=== PATIENT | male | born 1960 | race Caucasian/White ===

== ENCOUNTER → 2021-08-07 | Outpatient (CLI) | payer OTHER ==
[~2021-08-07] MED LIST: CELE200C PO; DEXAMETHASONE PRES.FREE 10 MG/ML VIAL. ONE; IOHEXOL 180 MG/ML 10 ML VIAL. ONE
--- NOTE | 2021-08-07 13:21 | PDOC1 ---
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 Patient reports the pain is constant and stabbing in the back changes during the day worse with activity standing walking better with sitting or laying down generally is not awakening from sleep at night does not have any bowel or bladder control issues from the pain patient does not use any assistive devices to ambulate but reports that it does affect his ability to walk when the pain is at its worst. Patient did have MRI scan dated 2013 also more recent plain films lumbar spine showing degenerative changes throughout the lumbar distribution with narrowing at L3-4 L4-5 and L5-S1 levels. Patient reports no loss of motor function but significant fatigability once again of the lower extremities. Patient rates his disability rating 0-10 10 being the worst is a 9 with family responsibilities recreation social activity 10 with occupation and 6 with life support activities. Patient is had chiropractic treatment which is ongoing but nothing in the past few months also has had epidural injections many years ago which were very helpful. PAST MEDICAL HISTORY: PMH: Prostate cancer status post prostatectomy, arthritis PREVIOUS SURGERIES: Past Surgical Hx: Prostatectomy, bilateral knee arthroscopy, appendectomy CURRENT MEDICATIONS: Current Meds: Active Scripts Medications Dose Route/Sig Max Daily Dose Days Date Category Celebrex (Celecoxib) 200 Mg Capsule 1 Cap PO DAILY 08/07/21 Reported ALLERGIES; Allergies: Coded Allergies: No Known Drug Allergies (Unverified , 08/07/21) FAMILY HISTORY: Family Hx: Hypertension, cancers SOCIAL HISTORY: Social Hx: Patient does not meli alcohol does not smoke says any illegal illicit or recreational drugs is single 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 REVIEW OF SYSTEMS: ROS: Positive for those items mentioned in history of present illness, all systems are reviewed, otherwise negative ,and are complete full and well-documented on patient's chart. PHYSICAL EXAM: VS: Blood pressure is 188/100 pulse 69 respirations 18 temperature is 98.0 F height 5 feet 11 inches weight is 254 pounds. PE: PHYSICAL EXAMINATION: GENERAL: The patient is awake, alert, oriented, appropriate, very pleasant in demeanor HEENT: Shows normocephalic, atraumatic. Extraocular movements are intact and symmetrical. Full talbot and mustache. Oral cavity: Mucous membranes moist and pink. Dentition is intact. NECK: Shows anterior throat supple without palpable lymphadenopathy noted. Swa llow reflex symmetrical. CHEST: Shows normal on inspection. Breath sounds are clear bilaterally, no rales rhonchi wheezes auscultated. HEART: Shows S1, S2 clear. No murmurs auscultated. ABDOMEN: Soft, nontender, nondistended. No palpable organomegaly is noted. BACK: Shows spine grossly in the midline. Normal-appearing cervical lordotic curvature. There is slightly increased thoracic kyphosis, some mild flattening of the lumbar lordotic curvature. Lumbar paraspinous muscles show symmetrical on inspection, on palpation shows some moderate tenderness diffusely throughout the upper, middle and lower distribution of the paraspinous muscles bilaterally and also into the lower thoracic paraspinous musculature, firm and tender, but without specific trigger points, without radiation of pain. The patient has good rotational motion of the lumbar spine, both laterally as well as extension and flexion with some mild pain with extension right and left lateral rotation as well as forward flexion but without radiation. No tenderness over the spinous processes, sacrum or sacroiliac regions. EXTREMITIES: Lower extremities show deep tendon reflexes 2+ in the patellar and tendo calcaneus tendons. Motor exam is 5 on a scale of 5 with right dorsiflexion, extension, quadriceps and hamstring flexion and 5/5 on the left. Peripheral pulses are 1+ posterior tibial. No peripheral edema is noted bilater ally. Lower extremities are warm and dry to touch, equal in color and appearance. Straight leg raise noted to be negative bilaterally. Gaenslen's and Nicholas's maneuvers are negative bilaterally as well. The patient is able to stand, stand on his toes without significant difficulty or loss of balance walks with a slight widened gait but does not significantly favor the right or left lower extremity and is not use any assistive devices to ambulate. SKIN: Shows warm and dry, good turgor. No edema. No sores, rashes or bruising throughout. IMPRESSION: Impression: 61-year-old male with long history low back pain bilateral lower extremity pain. Lumbar films as noted Arthritis History of prostate cancer Plan: Options were discussed with the patient including surgical management physical therapies and interventional techniques. As patient is on chiropractic treatment and is doing stretching strengthening on his own, he would like to try interventional techniques as he has had good success with these in the distant past. We discussed a lumbar epidural steroid injections description as well as anatomical models to describe the procedure. Risks were discussed including but not limited to: Bleeding, infection, possibility of epidural hematoma and subsequent neurological compromise, dural puncture, headaches, spinal cord and/or nerve damage, side effects of steroid medication, and poor results regarding pain control. Patient understands and wished to proceed. Patient will return to the clinic in approximate 2 weeks for follow-up, was counseled as to return appointment, activity level, and side effect to be aware of. Procedure is lumbar epidural steroid injection under local anesthetic using sterile prep and drape at the L4-5 level using C-arm fluoroscopic guidance in both AP and lateral views medications injected is 20 mg dexamethasone +10mL preservative-free normal saline and 2 mL contrast- condition at discharge is stable patient tolerated procedure well had no complications. PIERCE ACEVES MD Aug 07, 2021 13:21
--- NOTE | 2021-08-07 13:21 | PDOC4 ---
Procedure Note: ICD 10 Code: ICD 10 Code: M54.16 M51.36 Procedure Note: Patient was consented for lumbar epidural steroid injection with fluoroscopic guidance. Risks were discussed including but not limited to: Bleeding, infection, possibility of epidural hematoma and subsequent neurological compromise, dural puncture, headaches, spinal cord and/or nerve damage, side effects of steroid medication, and poor results regarding pain control. Patient understands and wished to proceed. Procedure is lumbar epidural steroid injection under local anesthetic using sterile prep and drape at the L4-5 level using C-arm fluoroscopic guidance in both AP and lateral views medications injected is 20 mg dexamethasone +10mL preservative-free normal saline and 2 mL contrast- condition at discharge is stable patient tolerated procedure well had no complications. PIERCE ACEVES MD Aug 07, 2021 13:21
== END | disposition home or self-care (01) ==
LOC: PNCL 11:34
PROVIDERS: ATTEND Anesthesiology
DX: M51.16 Intervertebral disc disorders with radiculopathy, lumbar region (principal); M19.90 Unspecified osteoarthritis, unspecified site; Z79.899 Other long term (current) drug therapy; Z98.890 Other specified postprocedural states; Z85.46 Personal history of malignant neoplasm of prostate; Z82.49 Family history of ischemic heart disease and other diseases of the circulatory system
CPT/HCPCS: 62323; G0463; J1100; Q9965